=== PATIENT | female | born 1955 | race African-American/Black ===

== ENCOUNTER 2019-11-10 09:16 | Emergency (ER) | payer OTHER ==
[~2019-11-10] VITALS: Ht 152.4 cm; Wt 72.6 kg
[2019-11-10 09:25] VITALS: BP 134/91; TEMP 97.9
[2019-11-10 10:22] LABS: POTASSIUM 3.9 mmol/L (3.6-5.2)
[2019-11-10 10:44] LABS: PLATELET COUNT 234 K/uL (152-353)
== END 2019-11-10 11:18 | disposition home or self-care (01) ==
LOC: ED 09:16
PROVIDERS: Family Medicine
DX: I88.8 Other nonspecific lymphadenitis (principal); E78.1 Pure hyperglyceridemia
CPT/HCPCS: 80053; 85027; 87502; 87651; 99283

== ENCOUNTER 2021-08-19 10:05 | Outpatient (CLI) | payer OTHER | END 2021-08-19 19:35 | disposition home or self-care (01) | LOC: MAMMO 10:05 | PROVIDERS: ATTEND Internal Medicine | DX: R92.2 Inconclusive mammogram (principal) | CPT/HCPCS: G0279 ==